=== PATIENT | male | born 1950 | race Caucasian/White ===

== ENCOUNTER → 2017-01-17 | Outpatient (CLI) | payer MEDICARE ==
[~2017-01-17] MED LIST: CIPR500T4 PO; FLAG500T PO; LORTA5 PO; ZOFR4TAB3 SL
[2017-01-17 11:45] LABS: AUTOMATED NEUTROPHIL # 3.4 TH/MM3 (1.8-7.7); BASOPHIL # 0.1 TH/MM3 (0-0.2); EOSINOPHIL # 0.2 TH/MM3 (0-0.4); EOSINOPHIL % 2.4 % (0.0-4.0); HEMATOCRIT 45.7 % (39.0-51.0); HEMO FLAGS DIFF FINAL; LYMPH % 31.6 % (9.0-44.0); MEAN CELL VOLUME 88.4 FL (80.0-100.0); MEAN CORPUSCULAR HEMOGLOBIN 30.7 PG (27.0-34.0); MEAN CORPUSCULAR HGB CONC 34.7 % (32.0-36.0); MONO % 12.2 % (0.0-8.0); NEUT % 52.8 % (16.0-70.0); PLATELET COUNT 233 TH/MM3 (150-450); RED BLOOD COUNT 5.17 MIL/MM3 (4.50-5.90); RED CELL DISTRIBUTION WIDTH 14.2 % (11.6-17.2); WHITE BLOOD COUNT 6.4 TH/MM3 (4.0-11.0)
--- NOTE | 2017-01-18 08:04 | EKG ---
Date Performed: 01/17/2017 Time Performed: 11:56:08 PTAGE: 66 years EKG: Sinus rhythm WITH OCCASIONAL SUPRAVENTRICULAR PREMATURE COMPLEXES POSSIBLE RIGHT VENTRICULAR CONDUCTION DELAY BOR DERLINE ECG PREVIOUS TRACING : 10/25/2011 16.51 DOCTOR: Kain Arredondo Interpretating Date/Time 01/18/2017 08:03:28
== END ==
LOC: CLAB 11:28
PROVIDERS: ATTEND Surgery
DX: L72.3 Sebaceous cyst (principal); R94.31 Abnormal electrocardiogram [ECG] [EKG]
CPT/HCPCS: 36415; 85025; 93005

== ENCOUNTER → 2017-01-22 | Day surgery (SDC) | payer MEDICARE ==
[~2017-01-22] MED LIST changes: +ACETAMINOPHEN 1000 MG/100 ML VIAL IV ONE; +BUPIVACAINE/EPINEPHRINE 0.25% 50 ML VIAL ONE; +LACTATED RINGER'S 1000 ML INJ 1,000 ML ONE; +LIDOCAINE 1%/EPINEPHrine 1:100,000 SOLN 20 ML VIAL ONE; +MEPERIDINE HCL 25 MG/ML VIAL ONE; +MIDAZOLAM HCL 2 MG/2 ML VIAL ONE; +PROPOFOL 200 MG/20 ML AMP IV ONE; +ceFAZolin 2 GM PREMIX 50 ML ONE
--- NOTE | 2017-01-22 14:49 | TN ---
cc: RICHARD REMY MD DATE OF SURGERY: 01/22/2017 PREOPERATIVE DIAGNOSIS 1. Sebaceous cyst of the back, 4 cm. 2. Skin lesion of the neck, probable basal cell carcinoma. POSTOPERATIVE DIAGNOSIS 1. Sebaceous cyst of the back, 4 cm. 2. Skin lesion of the neck, probable basal cell carcinoma. PROCEDURE 1. Excision of sebaceous cyst of the back, 4 cm. 2. Excision skin lesion of the neck, probable basal cell carcinoma. SURGEON Gus BRONC BREAKER MS Rose III SPECIMENS REMOVED 1. Neck skin lesion. 2. Sebaceous cyst of the back. ESTIMATED BLOOD LOSS 5 cc. ANESTHESIA General. OPERATIVE FINDINGS The patient had a lesion approximately just under a centimeter on the posterior neck which appeared to be a basal cell carcinoma. I performed excision with at least 3 mm margins. The sebaceous cyst in the upper back was large, at least 4 cm, and was excised elliptically. PROCEDURE IN DETAIL The patient was taken to the operating room, placed in a supine position and general anesthesia was induced. He was then placed in a right lateral position on a brothers bag. The posterior neck and upper back were prepped and draped in usual sterile fashion and a surgical timeout was performed to verify correct patient, procedures and sites. The skin and subcutaneous tissue was infiltrated with local anesthetic with epinephrine around the skin lesion of the posterior neck. The lesion was less than 1 cm. An elliptical incision was made and the skin was excised including a portion of the subcutaneous fat. Margins were at least 3 mm around the skin lesion. Hemostasis was achieved. The incision was closed with 3-0 Vicryl deep dermal sutures and running subcuticular Monocryl. Dermabond was applied. The cyst of the upper back was at least 4 cm. An elliptical incision was made and the cyst was carefully circumferentially excised using electrocautery and sharp dissection. It was partially entered on one portion but the entire cyst capsule was removed. The wound was irrigated and hemostasis achieved. The wound was closed with deep dermal 2-0 Vicryl sutures and running subcuticular 4-0 Monocryl as well as Dermabond. The patient tolerated the procedure well, was extubated and taken to PACU in stable condition. MD PAOLA Rosado/BT /2:11 PM /2:40 PM
== END | disposition home or self-care (01) ==
LOC: ESDC 11:36
PROVIDERS: ATTEND Surgery
DX: L72.3 Sebaceous cyst (principal); C44.41 Basal cell carcinoma of skin of scalp and neck
CPT/HCPCS: 00300; 11426; 11623; 88304; 88305; J0131; J0690; J2175; J2250; J3010; J7120